=== PATIENT | female | born 1970 | race Hispanic/Latino ===

== ENCOUNTER 2018-03-07 16:58 | Emergency (ER) | payer MEDICAID ==
[2018-03-07] MEDS ORDERED: METHYLPREDNISOLONE SOD SUCC 125MG/2ML VIAL ONE (18:40)
[2018-03-07 18:46] LABS: BASOPHILS % (AUTO) 0.9 % (0.0-5.0); EOSINOPHILS % (AUTO) 2.6 % (0.0-8.0); HEMATOCRIT 38.1 % (36-48); LYMPHOCYTES % (AUTO) 27.4 % (21.0-51.0); MEAN CORPUSCULAR HEMOGLOBIN 30.4 pg (27.0-33.0); MEAN CORPUSCULAR HGB CONC 34.3 g/dL (32.0-36.0); MEAN CORPUSCULAR VOLUME 88.5 fL (79-99); MONOCYTES % (AUTO) 9.5 % (3.0-13.0); NEUTROPHILS % (AUTO) 59.6 % (40.0-77.0); PLATELET COUNT (AUTO) 277 K/uL (130-400); RED BLOOD CELL COUNT(AUTO) 4.31 MIL/uL (4.00-5.50); RED CELL DISTRIBUTION WIDTH 13.9 % (11.0-15.5); WHITE BLOOD COUNT (AUTO) 9.5 K/uL (4.8-10.8)
[2018-03-07 18:57] LABS: CREATININE 0.7 mg/dL (0.5-1.5); POTASSIUM 3.9 mmol/L (3.5-5.1)
== END 2018-03-07 19:43 | disposition home or self-care (01) ==
LOC: EDH 16:58
DX: M10.9 Gout, unspecified (principal)
CPT/HCPCS: 36415; 80048; 84550; 85025; 96372; 99284; J2930

== ENCOUNTER 2018-03-28 09:57 | Emergency (ER) | payer MEDICAID ==
[2018-03-28] MEDS ORDERED: KETOROLAC TROMETHAMINE 60 MG/2 ML VIAL ONE (10:39)
== END 2018-03-28 11:25 | disposition home or self-care (01) ==
LOC: EDH 09:57
DX: M10.9 Gout, unspecified (principal)
CPT/HCPCS: 96372; 99283; J1885

== ENCOUNTER 2022-02-05 18:22 | Emergency (ER) | payer MEDICAID ==
[~2022-02-05] VITALS: Ht 149.9 cm; Wt 76.2 kg
[2022-02-05 19:00] LABS: BASOPHILS % (AUTO) 0.6 % (0.0-5.0); EOSINOPHILS % (AUTO) 2.6 % (0.0-8.0); HEMATOCRIT 42.3 % (36-48); LYMPHOCYTES % (AUTO) 23.8 % (21.0-51.0); MEAN CORPUSCULAR HEMOGLOBIN 29.5 pg (27.0-33.0); MEAN CORPUSCULAR HGB CONC 31.2 g/dL (32.0-36.0); MEAN CORPUSCULAR VOLUME 94.6 fL (79-99); MONOCYTES % (AUTO) 8.3 % (3.0-13.0); NEUTROPHILS % (AUTO) 64.3 % (40.0-77.0); PLATELET COUNT (AUTO) 330 K/uL (130-400); RED BLOOD CELL COUNT(AUTO) 4.47 MIL/uL (4.00-5.50); RED CELL DISTRIBUTION WIDTH 13.2 % (11.0-15.5); WHITE BLOOD COUNT (AUTO) 11.7 K/uL (4.8-10.8)
[2022-02-05] MEDS ORDERED: KETOROLAC 60 MG VIAL (30MG/ML) IM ONE (19:00)
[2022-02-05] MEDS ORDERED: DEXAMETHASONE 4 MG TAB PO SCH (19:00)
[2022-02-05 19:12] LABS: CREATININE 0.7 mg/dL (0.5-1.5); POTASSIUM 3.6 mmol/L (3.5-5.1)
[2022-02-05 19:16] LABS: ALBUMIN 3.7 g/dL (3.5-5.0); BILIRUBIN,TOTAL 0.3 mg/dL (0.2-1.0); TOTAL PROTEIN, SERUM 8.1 g/dL (6.0-8.3); URIC ACID 8.8 mg/dL (2.6-7.2)
[2022-02-05] MEDS ORDERED: CEPH500B PO (19:30)
[2022-02-05] MEDS ORDERED: CEPHALEXIN 500 MG CAPSULE PO ONE (19:30)
[2022-02-05] MEDS ORDERED: INDO50CA97 PO (19:30)
[2022-02-05] MEDS ORDERED: PRED20TA3 PO (19:30)
[2022-02-05] MEDS ORDERED: ALLO300T2 PO (19:30)
[2022-02-05 19:56] VITALS: BP 159/87
== END 2022-02-05 19:57 | disposition home or self-care (01) ==
LOC: EDH 18:22
DX: M10.071 Idiopathic gout, right ankle and foot (principal); L03.031 Cellulitis of right toe; E78.00 Pure hypercholesterolemia, unspecified; Z79.52 Long term (current) use of systemic steroids
CPT/HCPCS: 36415; 73620; 80053; 84550; 85025; 96372; 99284; J1885; J8540

== ENCOUNTER 2022-11-24 03:06 | Emergency (ER) | payer BC, MEDICAID ==
[~2022-11-24] VITALS: Ht 149.9 cm; Wt 81.6 kg
[~2022-11-24 03:06] MED LIST: ALLO300T2 PO; CEPH500B PO; INDO50CA97 PO; PRED20TA3 PO
[2022-11-24] MEDS ORDERED: PREDNISONE 20 MG TABLET PO ONE (03:30)
[2022-11-24] MEDS ORDERED: KETOROLAC 30MG VIAL (30MG/ML) IVP ONE (03:30)
[2022-11-24 03:49] LABS: BASOPHILS % (AUTO) 0.5 % (0.0-5.0); EOSINOPHILS % (AUTO) 2.3 % (0.0-8.0); HEMATOCRIT 39.9 % (36-48); LYMPHOCYTES % (AUTO) 26.2 % (21.0-51.0); MEAN CORPUSCULAR HEMOGLOBIN 29.4 pg (27.0-33.0); MEAN CORPUSCULAR HGB CONC 32.8 g/dL (32.0-36.0); MEAN CORPUSCULAR VOLUME 89.7 fL (79-99); MONOCYTES % (AUTO) 9.3 % (3.0-13.0); NEUTROPHILS % (AUTO) 60.5 % (40.0-77.0); PLATELET COUNT (AUTO) 242 K/uL (130-400); RED BLOOD CELL COUNT(AUTO) 4.45 MIL/uL (4.00-5.50)
[2022-11-24 03:58] LABS: POTASSIUM 3.8 mmol/L (3.5-5.1)
[2022-11-24 04:03] LABS: ALBUMIN 3.5 g/dL (3.5-5.0); TOTAL PROTEIN, SERUM 7.3 g/dL (6.0-8.3); URIC ACID 7.4 mg/dL (2.6-7.2)
[2022-11-24 04:30] VITALS: BP 137/72
[2022-11-24] MEDS ORDERED: PRED20TA3 PO (04:31)
[2022-11-24] MEDS ORDERED: IBUP-1493 PO (04:31)
== END 2022-11-24 04:44 | disposition home or self-care (01) ==
LOC: EDH 03:06
DX: M10.071 Idiopathic gout, right ankle and foot (principal); E78.00 Pure hypercholesterolemia, unspecified; Z98.890 Other specified postprocedural states; Z79.899 Other long term (current) drug therapy
CPT/HCPCS: 99284; 96374; 84550; 80053; 85025; 36415; J1885

== ENCOUNTER 2022-12-30 05:52 | Emergency (ER) | payer BC, MEDICAID ==
[~2022-12-30] VITALS: Ht 149.9 cm; Wt 84.1 kg
[~2022-12-30 05:52] MED LIST changes: +IBUP-1493 PO
[2022-12-30 06:55] LABS: BASOPHILS % (AUTO) 0.7 % (0.0-5.0); EOSINOPHILS % (AUTO) 2.9 % (0.0-8.0); HEMATOCRIT 40.9 % (36-48); LYMPHOCYTES % (AUTO) 26.7 % (21.0-51.0); MEAN CORPUSCULAR HEMOGLOBIN 29.9 pg (27.0-33.0); MEAN CORPUSCULAR HGB CONC 32.3 g/dL (32.0-36.0); MEAN CORPUSCULAR VOLUME 92.7 fL (79-99); MONOCYTES % (AUTO) 8.8 % (3.0-13.0); NEUTROPHILS % (AUTO) 59.9 % (40.0-77.0); PLATELET COUNT (AUTO) 247 K/uL (130-400); RED BLOOD CELL COUNT(AUTO) 4.41 MIL/uL (4.00-5.50); RED CELL DISTRIBUTION WIDTH 13.2 % (11.0-15.5)
[2022-12-30] MEDS ORDERED: 0.9%NACL 1000ML 2,000 ML IV ONE (07:00)
[2022-12-30 07:05] LABS: HCG,QUALITATIVE URINE NEGATIVE (NEGATIVE)
[2022-12-30 07:05] LABS: ALBUMIN 3.6 g/dL (3.5-5.0); CREATININE 0.8 mg/dL (0.5-1.5); POTASSIUM 4.1 mmol/L (3.5-5.1); TOTAL PROTEIN, SERUM 7.7 g/dL (6.0-8.3)
[2022-12-30 07:06] LABS: APPEARANCE,URINE CLEAR (CLEAR); BILIRUBIN,URINE NEGATIVE (NEGATIVE); COLOR,URINE YELLOW (YELLOW); GLUCOSE, URINE (UA) NEGATIVE (NEGATIVE); KETONES,URINE NEGATIVE (NEGATIVE); LEUKOCYTE ESTERASE ,URINE NEGATIVE Leu/uL (NEGATIVE); NITRATE,URINE NEGATIVE (NEGATIVE); OCCULT BLOOD,URINE NEGATIVE (NEGATIVE); PROTEIN,URINE NEGATIVE (NEGATIVE); UROBILINOGEN,URINE 0.2 mg/dL (0.2-1.0)
[2022-12-30 07:28] VITALS: BP 130/91
[2022-12-30] MEDS ORDERED: MECL-160 PO (07:30)
== END 2022-12-30 07:56 | disposition home or self-care (01) ==
LOC: EDH 05:52
DX: R42 Dizziness and giddiness (principal); I10 Essential (primary) hypertension; M10.9 Gout, unspecified; Z79.1 Long term (current) use of non-steroidal anti-inflammatories (NSAID); Z79.52 Long term (current) use of systemic steroids
CPT/HCPCS: 99283; 96360; 80053; 85025; 81003; 81025; 36415; J7030

== ENCOUNTER 2024-03-02 05:26 | Emergency (ER) | payer BC, MEDICAID ==
[~2024-03-02] VITALS: Ht 149.9 cm; Wt 87.5 kg
[~2024-03-02 05:26] MED LIST changes: +MECL-160 PO
[2024-03-02 05:51] LABS: BASOPHILS # (AUTO) 0.07 K/uL (0.00-0.20); BASOPHILS % (AUTO) 0.7 % (0.0-5.0); EOSINOPHILS # (AUTO) 0.41 K/uL (0.00-0.70); HEMATOCRIT 39.2 % (36-48); IMMATURE GRANULOCYTE ABSOLUTE 0.03 K/uL (0-1); LYMPHOCYTES # (AUTO) 2.9 K/uL (1.0-4.8); LYMPHOCYTES % (AUTO) 28.7 % (21.0-51.0); MEAN CORPUSCULAR HEMOGLOBIN 29.7 pg (27.0-33.0); MEAN CORPUSCULAR HGB CONC 32.4 g/dL (32.0-36.0); MEAN CORPUSCULAR VOLUME 91.6 fL (79-99); MONOCYTES # (AUTO) 1.1 K/uL (0.1-1.0); MONOCYTES % (AUTO) 10.3 % (3.0-13.0); NEUTROPHILS # (AUTO) 5.7 K/uL (1.8-7.7); PLATELET COUNT (AUTO) 221 K/uL (130-400); RED BLOOD CELL COUNT(AUTO) 4.28 MIL/uL (4.00-5.50); RED CELL DISTRIBUTION WIDTH 12.9 % (11.0-15.5); WHITE BLOOD COUNT (AUTO) 10.3 K/uL (4.8-10.8)
[2024-03-02] MEDS: KETOROLAC 30MG VIAL (30MG/ML) IVP ONE (05:53)
[2024-03-02] MEDS: TRAMADOL /APAP 37.5MG/325MG TAB PO ONE (05:53)
[2024-03-02] MEDS: 0.9%NACL 1000ML 1,000 ML IV SCH (05:53)
[2024-03-02 06:05] LABS: ALBUMIN 3.5 g/dL (3.5-5.0); BILIRUBIN,TOTAL 0.2 mg/dL (0.2-1.0); CREATININE 0.7 mg/dL (0.5-1.0); TOTAL PROTEIN, SERUM 7.3 g/dL (6.0-8.3); URIC ACID 8.3 mg/dL (2.6-7.2)
[2024-03-02] MEDS ORDERED: IBUP-1493 PO (06:20)
[2024-03-02 06:27] VITALS: BP 141/64; PULSE 60; RESP 18; O2SAT 100
== END 2024-03-02 06:34 | disposition home or self-care (01) ==
LOC: EDH 05:26
DX: M10.9 Gout, unspecified (principal); M79.674 Pain in right toe(s); E78.00 Pure hypercholesterolemia, unspecified; Z79.899 Other long term (current) drug therapy; Z98.890 Other specified postprocedural states
CPT/HCPCS: 99284; 96374; 96361; 84550; 80053; 85025; 36415; 73630; J7030; J1885

== ENCOUNTER 2025-04-14 23:22 | Emergency (ER) | payer BC ==
[~2025-04-14] VITALS: Ht 149.9 cm; Wt 84.4 kg
[~2025-04-14 23:22] MED LIST changes: -MECL-160 PO; +MECL-302 PO
[2025-04-15] MEDS: ketOROlac 60 MG VIAL (30MG/ML) IM ONE (00:54)
--- NOTE | 2025-04-15 01:39 | NUR ---
report given to jojo bell
[2025-04-15] MEDS ORDERED: IBUP-2070 PO (02:08)
[2025-04-15] MEDS ORDERED: PRED20TA3 PO (02:08)
--- NOTE | 2025-04-15 02:12 | ERN ---
ED Note History of Present Illness Stated Complaint: LEFT KNEE PAIN Chief Complaint: Knee Injury/Swelling Time Seen by MD: 23:30 Time Seen by Midlevel: 20:30 Dictation: The patient is a 54-year-old female with a history of TONY who presents to the emergency department with right knee pain after she accidentally injured it while work. Patient reports she was throwing bags of trash over a towel dry skin when she felt the sudden onset of pain on her right knee. Denies any falls. No other injuries reported. Allergies: Coded Allergies: No Known Drug Intolerances (Verified Allergy, Unknown, 02/05/22) Home Meds Active Scripts Ibuprofen (Motrin/Advil) 800 Mg Tab, 800 MG PO Q8H, #12 TAB Prov:TINO VICENTE MD 03/02/24 Meclizine HCl (Meclizine HCl) 25 Mg Tablet, 25 MG PO Q8H PRN for DIZZINESS, #10 TAB Prov:TINO VICENTE MD 12/30/22 Prednisone (Prednisone) 20 Mg Tablet, 1 TAB PO AD for 6 Days, #14 TAB 0 Refills TAKE 3 TAB BY MOUTH daily X3 DAYS, THEN TAKE 2 TAB BY MOUTH daily X2 DAYS, THEN TAKE 1 TAB BY MOUTH ONCE A DAY X1 DAY. Prov:AMI CALIX MD 11/24/22 Ibuprofen (Motrin/Advil) 800 Mg Tab, 800 MG PO TID, #30 TAB Prov:AMI CALIX MD 11/24/22 Prednisone (Prednisone) 20 Mg Tablet, 2 TAB PO AD for 5 Days, #10 TAB 0 Refills TAKE 1 TAB BY MOUTH THREE TIMES PER DAY X3 DAYS, THEN TAKE 1 TAB BY MOUTH TWICE A DAY X2 DAYS, THEN TAKE 1 TAB BY MOUTH ONCE A DAY X1 DAY. Prov:MARV LEONE 02/05/22 Allopurinol (Allopurinol) 300 Mg Tablet, 300 MG PO DAILY, #30 TAB Prov:MARV LEONE 02/05/22 Indomethacin (Indocin) 50 Mg Cap, 50 MG PO TIDMEALS for 7 Days, #21 CAP Prov:MARV LEONE 02/05/22 Cephalexin Monohydrate (Keflex) 500 Mg Cap, 500 MG PO TID for 7 Days, #21 CAP Prov:MARV LEONE 02/05/22 Past Medical History Past Medical History: High Cholesterol, UTI, Other Additional Past Medical Hx: HX OF GOUT Surgical History: Family History: Negative Social History: Negative : 5 Para: 4 Aborts: 1 RN Note Reviewed/Agreed w/PFSH: Yes Review of System Dictation Constitutional: Negative for fever,chills, and weight loss Eyes: Negative for injury, pain,redness, and discharge ENT: Negative for injury,pain or swelling Cardiovascular: Negative for chest pain, palpitations, and edema Respiratory: Negative for shortness of breath, cough, and wheezing, Abdomen/GI: Negative for abdominal pain, nausea, vomiting, diarrhea, and constipation Back: Negative for injury and pain : Negative for injury, bleeding and discharge MS/Extremity: Positive for right knee pain injury Skin: Negative for rash, and discoloration Neuro: Negative for headache, weakness, numbness, tingling, and seizure Psych: Negative for suicide ideation, homicidal ideation, and hallucinations Initial Vital Sign VS Vital Signs Date Time Temp Pulse Resp B/P (MAP) Pulse Ox O2 Delivery O2 Flow Rate FiO2 04/14/25 23:23 98.1 70 18 178/80 100 Room Air 04/15/25 01:17 0 21 Physical Exam Dictation Vital Signs reviewed General Appearance: Alert, oriented x 3, no acute distress, well developed, nourished. Head and Face: non-traumatic. Eyes: PERRL, pink conjunctivas, eyelid no trauma, anterior chamber with arcus senilis. Ears: Pinnas intact and no signs of trauma or erythema ear canals clear and no discharge TM no erythema Nose: No discharge, no bleeding. Oropharynx: Mouth normal, tongue pink. pharynx clear,no erythema, tonsils no exudates, no abscesses noted, mucous membrane moist Neck: Supple, non-tender, no thyromegaly, no masses, no JVD, no bruits Breast:Deferred Chest:No tenderness, no crepitus, no paradoxical movement, no retractions Lungs:Clear, well-ventilated, symmetric, no rales, no wheezing, no rhonchi, no stridor, good breath sounds bilaterally Heart: Regular rate, regular rhythm, no murmur, no gallops Vascular: no peripheral edema, right dorsalis pedis pulse 3 +, cap refill to right foot less than 2 seconds Abdomen: Soft, positive bowel sounds, nondistended, no guarding, nontender, no rebound, no masses no hepatomegaly, no splenomegaly, no Kent's sign, no hernias. Rectal: Deferred Genital: Deferred Neurological: Normal speech, motor function intact, sensory function intact Musculoskeletal: Neck nontender, full range of motion, back nontender, full range of motion, Extremities: nontender, full range of motion , right knee with mild swelling, warmth. No open wounds. Limited range of motion due to pain, Skin: Color pink, dry, no turgor, no rash, no lacerations, no abrasions, no contusions. Lymphatic: Deferred Results (Laboratory/Radiology) Labs Reviewed?: Yes ED Course ED Course Orders Procedure Category Date Status Time Knee 3vws Rt RAD 04/14/25 Taken 23:46 Ketorolac 60mg/2ml PHA 04/15/25 Complete (Toradol 60mg/2ml) 00:00 Methylprednisolone PHA 04/15/25 Transmitted Succ 125mg (Solu-Medr 02:00 Knee Immobilizer RAJANI 04/15/25 In Process 01:58 Crutches W/Training CPOE 04/15/25 Transmitted (Er) 01:58 Current Medications Medications (Trade) Dose Ordered Sig/Kinga Route PRN Reason Start Time Stop Time Status Last Admin Dose Admin Ketorolac Tromethamine (toRADol 60MG/ 2ML) 60 mg ONCE ONCE IM 04/15/25 00:00 04/15/25 00:01 DC 04/15/25 00:54 Methylprednisolone Sodium Succinate (Solu-medROL 125MG) 60 mg ONCE ONCE IM 04/15/25 02:00 04/15/25 02:01 UNV Vital Signs Date Time Temp Pulse Resp B/P (MAP) Pulse Ox O2 Delivery O2 Flow Rate FiO2 04/15/25 01:17 98.1 72 18 161/77 100 Room Air* 0 21 04/14/25 23:23 98.1 70 18 178/80 100 Room Air Medical Decision Making MDM The patient is a 54-year-old female with a history of TONY who presents to the emergency department with right knee pain after she accidentally injured it while work. Patient reports she was throwing bags of trash over a towel dry skin when she felt the sudden onset of pain on her right knee. Denies any falls. No other injuries reported. X-ray showed no obvious fractures or dislocation. Patient with mild swelling to right knee, tenderness to palpation, neurovascularly intact. Patient will be discharged with a knee immobilizer and instructed to follow up with ortho. Patient in no acute distress, stable vital signs. Differential diagnosis: Knee sprain, patellar dislocation, knee contusion Need for hospitalization: Patient does not meet criteria for hospitalization. There are no social concerns with this patient. DX & DISP Disposition: Discharge Departure Impression: Primary Impression: Right knee sprain Condition: Stable Scripts Ibuprofen (Ibuprofen) 600 Mg Tablet 600 MG PO Q6H PRN for PAIN, #15 TAB Prov: LITTLE VIVEROS 04/15/25 Prednisone (Prednisone) 20 Mg Tablet 1 TAB PO DAILY for 5 Days, #5 TAB 0 Refills TAKE 1 TAB BY MOUTH THREE TIMES PER DAY X3 DAYS, THEN TAKE 1 TAB BY MOUTH TWICE A DAY X2 DAYS, THEN TAKE 1 TAB BY MOUTH ONCE A DAY X1 DAY. Prov: LITTLE VIVEROS 04/15/25 Additional Instructions: Please take your medications as prescribed. Follow up with your primary doctor in 1-2 days. Avoid any activities that further caused injury. Follow up with ortho. If symptoms worsen please return to ER. FOLLOW-UP WITH PRIMARY CARE PROVIDER IN 1 TO 2 DAYS. TAKE MEDICATIONS DIRECTED HERE IN THE EMERGENCY ROOM. OKAY TO CONTINUE HOME MEDICATIONS UNLESS OTHERWISE DISCUSSED DURING YOUR VISIT IN THE EMERGENCY ROOM TODAY. RETURN TO YOUR NEAREST EMERGENCY ROOM IF SYMPTOMS WORSEN OR IF THERE IS NO IMPROVEMENT. CALL 911 IF YOU NEED IMMEDIATE ASSISTANCE. TAKE TYLENOL OR MOTRIN [id number] NEEDED AND IF NO CONTRAINDICATIONS ARE PRESENT. INCREASE ORAL HYDRATION. A WOUND CULTURE OR URINE CULTURE WAS ORDERED HERE IN THE EMERGENCY ROOM DEPARTMENT PLEASE FOLLOW-UP WITH PRIMARY CARE PROVIDER AND ADVISE THEM TO GET REPEAT PORTS FROM OUR FACILITY. IF YOU HAD ANY SIVAKUMAR WRAP/SPLINTS THAT WERE APPLIED HERE, PLEASE DO NOT REMOVE THEM UNTIL YOU SEE YOUR PRIMARY CARE OR SPECIALTY. Referrals: RU VILLEGAS (PCP) DARYN ROLLINS MD Time of Disposition: 02:08 I have reviewed the case, and I agree with, Diagnosis and Plan LITTLE VIVEROS April 15, 2025 02:12
[2025-04-15] MEDS: Solu-medROL 125MG VIAL IM ONE (02:27)
--- NOTE | 2025-04-15 02:36 | NUR ---
KNEE IMMOBILIZER APPLIED TO RIGHT KNEE, PT TOLERATED WELL, CRUTCH TRAINING PROVIDED WITH RETURN DEMONSTRATION BY PT. ALL QUESTIONS AND CONCERNS ADDRESSED AT THIS TIME. NEUROVASCULAR STATUS INTACT SP IMMOBILIZER APPLICATION.
[2025-04-15 02:37] VITALS: BP 158/80; PULSE 79; RESP 16; TEMP 98.2; O2SAT 99
--- NOTE | 2025-04-15 08:33 | HMCIMG ---
Exam Type: KNEE 3VWS RT Clinical Information: pain, injury Comparison: None Findings: The bone examination is unremarkable. No fractures or dislocations are seen. No radiopaque foreign bodies are noted. Soft tissues are preserved. IMPRESSION: Normal examination.
== END 2025-04-15 02:38 | disposition home or self-care (01) ==
LOC: EDH 23:22
DX: S83.91XA Sprain of unspecified site of right knee, initial encounter (principal); E78.00 Pure hypercholesterolemia, unspecified; Z79.1 Long term (current) use of non-steroidal anti-inflammatories (NSAID); Z79.899 Other long term (current) drug therapy; W18.39XA Other fall on same level, initial encounter; Y93.89 Activity, other specified; Y92.89 Other specified places as the place of occurrence of the external cause; Y99.0 Civilian activity done for income or pay
CPT/HCPCS: 99284; 73562; 29505; 96372 ×2; J1885; J2919